=== PATIENT | male | born 1995 | race Caucasian/White ===

== ENCOUNTER 2017-04-21 15:33 | Emergency (ER) | payer OTHER ==
[~2017-04-21] VITALS: Ht 180.3 cm; Wt 215.0 kg
[2017-04-21 15:59] LABS: HEMATOCRIT 43.9 % (39.0-50.0); HEMOGLOBIN 15.5 g/dl (14.0-18.0); IMMATURE GRANULOCYTES 0.6 % (0.0-1.0); MEAN CELL VOLUME 80.4 fL CALC (80.0-100.0); MEAN CORPUSCULAR HGB 28.4 pG CALC (26.0-32.0); MEAN CORPUSCULAR HGB CONC 35.3 g/L CALC (32.0-36.0); NEUT# 6.22 thou/uL (1.82-7.42); RED BLOOD COUNT 5.46 mill/uL (4.70-6.10)
[2017-04-21] MEDS ORDERED: MOTRIN800 MG PO (16:00)
[2017-04-21 16:32] LABS: ALBUMIN 5.2 g/dL (3.2-5.0); ALKALINE PHOSPHATASE 89 u/l (38-126); ANION GAP 22 (6-22 (CALC)); BUN 13 mg/dL (8-21); BUN/CREATININE RATIO 11 (12-20 (CALC)); CALCIUM 10.3 mg/dL (8.4-10.2); CARBON DIOXIDE 21 mmol/l (22-30); CHLORIDE 102 mmol/l (95-108); CPK 467 u/l (52-200); CREATININE 1.2 mg/dL (0.7-1.3); GFR > 60 ML/MIN (>=60 (CALC)); GFR FOR AFR.AMER. > 60 ML/MIN (>=60 (CALC)); GLUCOSE 105 mg/dL (70-106); POTASSIUM 3.4 mmol/l (3.5-5.1); SGOT/AST 43 u/l (17-59); SGPT/ALT 59 u/l (21-72); SODIUM 142 mmol/l (137-146); TOTAL PROTEIN 8.3 g/dL (6.3-8.2)
[2017-04-21 16:55] VITALS: BP 151/79
== END 2017-04-21 16:55 | disposition home or self-care (01) | DRG 605 ==
LOC: ED 15:33
PROVIDERS: Emergency Medicine
DX: S90.111A Contusion of right great toe without damage to nail, initial encounter (principal); T67.5XXA Heat exhaustion, unspecified, initial encounter; W22.8XXA Striking against or struck by other objects, initial encounter; X30.XXXA Exposure to excessive natural heat, initial encounter

== ENCOUNTER 2017-05-19 13:16 | Emergency (ER) | payer OTHER ==
[~2017-05-19] VITALS: Ht 180.3 cm; Wt 113.6 kg
[~2017-05-19 13:16] MED LIST: MOTRIN800 MG PO
[2017-05-19] MEDS ORDERED: CIPROFLOXACN500 MG PO (13:32)
[2017-05-19 15:42] VITALS: BP 121/51
== END 2017-05-19 15:42 | disposition home or self-care (01) | DRG 605 ==
LOC: ED 13:16
DX: S91.332A Puncture wound without foreign body, left foot, initial encounter (principal); W45.0XXA Nail entering through skin, initial encounter; Y93.89 Activity, other specified; Y92.89 Other specified places as the place of occurrence of the external cause

== ENCOUNTER 2017-06-13 09:12 | Emergency (ER) | payer BC ==
[~2017-06-13] VITALS: Ht 180.3 cm; Wt 110.0 kg
[~2017-06-13 09:12] MED LIST changes: +CIPROFLOXACN500 MG PO
[2017-06-13 09:40] LABS: HEMATOCRIT 45.9 % (39.0-50.0); HEMOGLOBIN 15.9 g/dl (14.0-18.0); IMMATURE GRANULOCYTES 0.4 % (0.0-1.0); MEAN CELL VOLUME 82.7 fL CALC (80.0-100.0); MEAN CORPUSCULAR HGB 28.6 pG CALC (26.0-32.0); MEAN CORPUSCULAR HGB CONC 34.6 g/L CALC (32.0-36.0); NEUT# 2.95 thou/uL (1.82-7.42); RED BLOOD COUNT 5.55 mill/uL (4.70-6.10); RED CELL DISTRI WIDTH 12.5 % (11.5-15.5)
[2017-06-13 09:59] LABS: ALBUMIN 4.8 g/dL (3.2-5.0); ALKALINE PHOSPHATASE 71 u/l (38-126); ANION GAP 14 (6-22 (CALC)); BILIRUBIN, TOTAL 1.6 mg/dL (0.0-1.4); BUN 17 mg/dL (8-21); BUN/CREATININE RATIO 19 (12-20 (CALC)); CALCIUM 9.6 mg/dL (8.4-10.2); CARBON DIOXIDE 27 mmol/l (22-30); CHLORIDE 106 mmol/l (95-108); CREATININE 0.9 mg/dL (0.7-1.3); GFR > 60 ML/MIN (>=60 (CALC)); GFR FOR AFR.AMER. > 60 ML/MIN (>=60 (CALC)); GLUCOSE 106 mg/dL (70-106); POTASSIUM 4.4 mmol/l (3.5-5.1); SGOT/AST 32 u/l (17-59); SGPT/ALT 46 u/l (21-72); SODIUM 143 mmol/l (137-146); TOTAL PROTEIN 7.9 g/dL (6.3-8.2)
[2017-06-13 10:12] LABS: MYOGLOBIN 35 ng/mL (0 - 121)
[2017-06-13 10:57] VITALS: BP 156/102
== END 2017-06-13 11:02 | disposition home or self-care (01) | DRG 313 ==
LOC: ED 09:12
PROVIDERS: Emergency Medicine
DX: R07.9 Chest pain, unspecified (principal)